=== PATIENT | female | born 1955 | race Caucasian/White ===

== ENCOUNTER 2018-10-11 14:42 | Emergency (ER) | payer MEDICARE ==
--- NOTE | 2018-10-11 16:15 | EDM.PDOC ---
ED HPI GENERAL MEDICAL PROBLEM - General Chief Complaint: Skin Complaint Stated Complaint: SPIDER BITE Time Seen by Provider: 10/11/18 14:55 Source of Information: Reports: Patient History Limitations: Reports: No Limitations - History of Present Illness INITIAL COMMENTS - FREE TEXT/NARRATIVE: HISTORY AND PHYSICAL: History of present illness: Patient is a 63-year-old female here with complaint of spider bite. She states she was cleaning a shelf yesterday when she reached up and felt spider webs then a prick on her arm. Today she noticed a blister with redness around it. She denies fevers, chills, nausea, vomiting, headache, joint pain. Review of systems: As per history of present illness and below otherwise all systems reviewed and negative. Past medical history: As per history of present illness and as reviewed below otherwise noncontributory. Surgical history: As per history of present illness and as reviewed below otherwise noncontributory. Social history: No reported history of drug or alcohol abuse. Family history: As per history of present illness and as reviewed below otherwise noncontributory. Physical exam: General: Patient sitting comfortably in no acute distress and nontoxic appearing HEENT: Atraumatic, normocephalic, pupils reactive, negative for conjunctival pallor or scleral icterus, mucous membranes moist, throat clear, neck supple, nontender, trachea midline. No meningeal signs. Lungs: Clear to auscultation, breath sounds equal bilaterally, chest nontender. Heart: S1S2, regular, negative for clicks, rubs, or overt murmur. Abdomen: Soft, nondistended, nontender. Negative for masses or hepatosplenomegaly. Negative for costovertebral tenderness. No rigidity, rebound , guarding. Pelvis: Stable nontender. Genitourinary: Deferred. Rectal: Deferred. Skin: There is a 1cm purulent blister to the posterior aspect of the arm just inferior to the elbow. There is approximately 3cm of surrounding erythema and warmth. Extremities: Atraumatic, negative for cords or calf pain. Neurovascular unremarkable. Neuro: Awake, alert, oriented. Cranial nerves II through XII unremarkable. Cerebellum unremarkable. Motor and sensory unremarkable throughout. Exam nonfocal. Notes: 18-gauge needle was used to drain a small amount of purulent fluid from blister Diagnostics: CBC, CMP Therapeutics: [] Prescriptions: Bactrim Impression: Cellulitis Plan: 1. take antibiotic as instructed. 2. Follow up with primary care provider 3. Return to ED as needed as discussed Definitive disposition and diagnosis as appropriate pending reevaluation and review of above. 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 ED EXAM, SKIN/RASH Exam: See Below (see dictation) Course - Vital Signs Last Recorded V/S: Last Vital Signs Temp 96.7 F 10/11/18 14:53 Pulse 109 H 10/11/18 14:53 Resp 18 10/11/18 14:53 BP 142/96 H 10/11/18 14:53 Pulse Ox 96 10/11/18 14:53 - Orders/Labs/Meds Labs: Laboratory Tests 10/11/18 10/11/18 Range/Units 15:23 15:23 WBC 11.46 H (4.0-11.0) K/uL RBC 5.47 (4.30-5.90) M/uL Hgb 17.0 H (12.0-16.0) g/dL Hct 51.4 H (36.0-46.0) % MCV 94.0 (80.0-98.0) fL MCH 31.1 (27.0-32.0) pg MCHC 33.1 (31.0-37.0) g/dL RDW Std Deviation 51.6 (28.0-62.0) fl RDW Coeff of Viky 15 (11.0-15.0) % Plt Count 267 (150-400) K/uL MPV 10.00 (7.40-12.00) fL Neut % (Auto) 74.0 (48.0-80.0) % Lymph % (Auto) 16.8 (16.0-40.0) % [place] % (Auto) 5.8 (0.0-15.0) % Eos % (Auto) 3.2 (0.0-7.0) % Baso % (Auto) 0.2 (0.0-1.5) % Neut # (Auto) 8.5 H (1.4-5.7) K/uL Lymph # (Auto) 1.9 (0.6-2.4) K/uL [place] # (Auto) 0.7 (0.0-0.8) K/uL Eos # (Auto) 0.4 (0.0-0.7) K/uL Baso # (Auto) 0.0 (0.0-0.1) K/uL Nucleated RBC % 0.0 /100WBC Nucleated RBCs # 0 K/uL Sodium 141 (136-145) mmol/L Potassium 4.3 (3.5-5.1) mmol/L Chloride 104 (98-107) mmol/L Carbon Dioxide 30.2 (21.0-32.0) mmol/L BUN 22 H (7.0-18.0) mg/dL Creatinine 1.1 H (0.6-1.0) mg/dL Est Cr Clr Drug Dosing 48.33 mL/min Estimated GFR (MDRD) 50.5 ml/min Glucose 123 H (74-106) mg/dL Calcium 9.5 (8.5-10.1) mg/dL Total Bilirubin 0.3 (0.2-1.0) mg/dL AST 14 L (15-37) IU/L ALT 20 (14-63) IU/L Alkaline Phosphatase 102 (46-116) U/L Total Protein 6.6 (6.4-8.2) g/dL Albumin 3.2 L (3.4-5.0) g/dL Globulin 3.4 (2.6-4.0) g/dL Albumin/Globulin Ratio 0.9 (0.9-1.6) Departure - Departure Time of Disposition: 16:15 Disposition: Home, Self-Care 01 Condition: Good Clinical Impression: Cellulitis Qualifiers: Site of cellulitis: extremity Site of cellulitis of extremity: upper extremity Laterality: left Qualified Code(s): L03.114 - Cellulitis of left upper limb - Discharge Information Prescriptions: Sulfamethoxazole/Trimethoprim [Bactrim Ds Tablet] 1 each PO BID #14 tablet Referrals: PCP,None [Primary Care Provider] - Forms: ED Department Discharge Additional Instructions: The following information is given to patients seen in the emergency department who are being discharged to home. This information is to outline your options for follow-up care. We provide all patients seen in our emergency department with a follow-up referral. The need for follow-up, as well as the timing and circumstances, are variable depending upon the specifics of your emergency department visit. If you don't have a primary care physician on staff, we will provide you with a referral. We always advise you to contact your personal physician following an emergency department visit to inform them of the circumstance of the visit and for follow-up with them and/or the need for any referrals to a consulting specialist. The emergency department will also refer you to a specialist when appropriate. This referral assures that you have the opportunity for follow-up care with a specialist. All of these measure are taken in an effort to provide you with optimal care, which includes your follow-up. Under all circumstances we always encourage you to contact your private physician who remains a resource for coordinating your care. When calling for follow-up care, please make the office aware that this follow-up is from your recent emergency room visit. If for any reason you are refused follow-up, please contact the [facility] at and asked to speak to the emergency department charge nurse. [facility] [address] [place] [id number] [id number] 1. take antibiotic as instructed. 2. Follow up with primary care provider 3. Return to ED as needed as discussed
== END 2018-10-11 16:45 | disposition home or self-care (01) ==
LOC: MW.ED 14:42
DX: L03.114 Cellulitis of left upper limb (principal); F17.210 Nicotine dependence, cigarettes, uncomplicated; Z91.040 Latex allergy status
CPT/HCPCS: 36415; 80053; 85025; 99282

== ENCOUNTER 2018-10-17 16:26 | Emergency (ER) | payer MEDICARE ==
--- NOTE | 2018-10-17 17:08 | EDM.PDOC ---
ED HPI GENERAL MEDICAL PROBLEM - General Chief Complaint: Respiratory Problem Stated Complaint: TROUBLE BREATHING Time Seen by Provider: 10/17/18 16:48 Source of Information: Reports: Patient History Limitations: Reports: No Limitations - History of Present Illness INITIAL COMMENTS - FREE TEXT/NARRATIVE: Presents reporting shortness of breath. The patient states that she has COPD and has smoked cigarettes for 40 years. She does occasionally have exacerbations like this. Currently she just arrived from her home in [place] and forgot her nebulizer. Denies chest pain or fever. - Related Data Allergies Allergy/AdvReac Type Severity Reaction Status Date / Time Latex, Natural Rubber Allergy Rash Verified 10/17/18 16:27 Home Meds: Home Meds Sulfamethoxazole/Trimethoprim [Bactrim Ds Tablet] 1 each PO BID #14 tablet 10/11 [Rx] Albuterol/Ipratropium [DuoNeb 3.0-0.5 MG/3 ML] 3 ml .XX BID #10 neb 10/17/18 [Rx ] predniSONE [Prednisone] 2 tab PO DAILY #10 tablet 10/17/18 [Rx] Past Medical History HEENT History: Reports: Impaired Vision Cardiovascular History: Reports: None Respiratory History: Reports: COPD Gastrointestinal History: Reports: None Genitourinary History: Reports: None 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: Musculoskeletal History: Reports: None Neurological History: Reports: None Psychiatric History: Reports: None Endocrine/Metabolic History: Reports: None Hematologic History: Reports: None Immunologic History: Reports: None Oncologic (Cancer) History: Reports: None Dermatologic History: Reports: None - Infectious Disease History Infectious Disease History: Reports: Chicken Pox - Past Surgical History Head Surgeries/Procedures: Reports: None HEENT Surgical History: Reports: None Cardiovascular Surgical History: Reports: None Respiratory Surgical History: Reports: None GI Surgical History: Reports: None Female Surgical History: Reports: None Endocrine Surgical History: Reports: None Neurological Surgical History: Reports: None Musculoskeletal Surgical History: Reports: None Oncologic Surgical History: Reports: None Dermatological Surgical History: Reports: None Social & Family History - Family History Family Medical History: Noncontributory - Tobacco Use Smoking Status *Q: Current Every Day Smoker Years of Tobacco use: 40 Packs/Tins Daily: 0.5 - Caffeine Use Caffeine Use: Reports: Coffee - Recreational Drug Use Recreational Drug Use: No ED ROS GENERAL - Review of Systems Review Of Systems: ROS reveals no pertinent complaints other than HPI. ED EXAM, GENERAL - Physical Exam Exam: See Below Exam Limited By: No Limitations General Appearance: Alert, No Apparent Distress Ears: Normal External Exam, Normal TMs Nose: Normal Inspection Throat/Mouth: Normal Inspection Head: Atraumatic, Normocephalic Neck: Normal Inspection Respiratory/Chest: No Respiratory Distress, Lungs Clear, Normal Breath Sounds GI/Abdominal: Normal Bowel Sounds (Female) Exam: Normal External Exam Back Exam: Normal Inspection Extremities: Normal Inspection Neurological: Alert, Oriented Psychiatric: Normal Affect, Normal Mood Skin Exam: Warm, Dry, Intact, Normal Color, No Rash Lymphatic: No Adenopathy Course - Vital Signs Last Recorded V/S: Last Vital Signs Temp 35.4 C 10/17/18 16:28 Pulse 102 H 10/17/18 16:28 Resp 20 10/17/18 16:28 BP 177/91 H 10/17/18 16:28 Pulse Ox 89 L 10/17/18 16:28 - Orders/Labs/Meds Orders: Active Orders 24 hr Category Date Time Status RT Aerosol Therapy [RC] ASDIRECTED Care 10/17/18 17:33 Active RT Aerosol Therapy [RC] ASDIRECTED Care 10/17/18 17:42 Ordered Labs: Laboratory Tests 10/17/18 10/17/18 Range/Units 17:22 17:22 WBC 11.14 H (4.0-11.0) K/uL RBC 5.41 (4.30-5.90) M/uL Hgb 16.6 H (12.0-16.0) g/dL Hct 51.3 H (36.0-46.0) % MCV 94.8 (80.0-98.0) fL MCH 30.7 (27.0-32.0) pg MCHC 32.4 (31.0-37.0) g/dL RDW Std Deviation 52.8 (28.0-62.0) fl RDW Coeff of Viky 15 (11.0-15.0) % Plt Count 246 (150-400) K/uL MPV 10.00 (7.40-12.00) fL Neut % (Auto) 79.4 (48.0-80.0) % Lymph % (Auto) 11.9 L (16.0-40.0) % [place] % (Auto) 5.6 (0.0-15.0) % Eos % (Auto) 2.7 (0.0-7.0) % Baso % (Auto) 0.4 (0.0-1.5) % Neut # (Auto) 8.9 H (1.4-5.7) K/uL Lymph # (Auto) 1.3 (0.6-2.4) K/uL [place] # (Auto) 0.6 (0.0-0.8) K/uL Eos # (Auto) 0.3 (0.0-0.7) K/uL Baso # (Auto) 0.0 (0.0-0.1) K/uL Nucleated RBC % 0.0 /100WBC Nucleated RBCs # 0 K/uL Sodium 140 (136-145) mmol/L Potassium 4.4 (3.5-5.1) mmol/L Chloride 106 (98-107) mmol/L Carbon Dioxide 24.1 (21.0-32.0) mmol/L BUN 21 H (7.0-18.0) mg/dL Creatinine 0.8 (0.6-1.0) mg/dL Est Cr Clr Drug Dosing 66.45 mL/min Estimated GFR (MDRD) > 60.0 ml/min Glucose 118 H (74-106) mg/dL Calcium 9.3 (8.5-10.1) mg/dL Total Bilirubin 0.2 (0.2-1.0) mg/dL AST 16 (15-37) IU/L ALT 21 (14-63) IU/L Alkaline Phosphatase 108 (46-116) U/L Total Protein 6.8 (6.4-8.2) g/dL Albumin 3.1 L (3.4-5.0) g/dL Globulin 3.7 (2.6-4.0) g/dL Albumin/Globulin Ratio 0.8 L (0.9-1.6) Meds: Medications Discontinued Medications Generic Name Dose Route Start Last Admin Trade Name Freq PRN Reason Stop Dose Admin Albuterol/Ipratropium Confirm 10/17/18 16:30 10/17/18 17:36 Duoneb 3.0-0.5 Mg/3 Ml Administered 10/17/18 16:31 Not Given Dose 3 ml .ROUTE .STK-MED ONE Albuterol/Ipratropium 3 ml 10/17/18 17:33 10/17/18 17:35 Duoneb 3.0-0.5 Mg/3 Ml NEB 10/17/18 17:34 3 ml ONETIME ONE Administration Budesonide 0.5 mg 10/17/18 17:42 Pulmicort NEB 10/17/18 17:43 ONETIME ONE Methylprednisolone Sodium Succinate 125 mg 10/17/18 17:45 Solu-Medrol IM 10/17/18 17:46 ONETIME ONE Departure - Departure Time of Disposition: 18:13 Disposition: Home, Self-Care 01 Condition: Good Clinical Impression: COPD (chronic obstructive pulmonary disease) Qualifiers: COPD type: unspecified COPD Qualified Code(s): J44.9 - Chronic obstructive pulmonary disease, unspecified - Discharge Information Referrals: PCP,None [Primary Care Provider] - [facility] [Outside] [facility] [Outside] Forms: ED Department Discharge Additional Instructions: 1. DuoNeb treatment twice daily. You have been given a prescription for a nebulizer which he may purchase at any pharmacy if you're daughter does not arrive with yours in the next 24 hours. 2. Prednisone 2 tabs once daily for the next 5 days 3. Establish with a primary care provider here in [place] while you are living here. - My Orders Last 24 Hours: My Active Orders 10/17/18 17:33 RT Aerosol Therapy [RC] ASDIRECTED 10/17/18 17:42 RT Aerosol Therapy [RC] ASDIRECTED - Assessment/Plan Last 24 Hours: My Active Orders 10/17/18 17:33 RT Aerosol Therapy [RC] ASDIRECTED 10/17/18 17:42 RT Aerosol Therapy [RC] ASDIRECTED
--- NOTE | 2018-10-17 17:31 | CR ---
INDICATION: SOB TECHNIQUE: Chest 2 views. COMPARISON: None. FINDINGS: Cardiovascular and mediastinum: Heart size and vasculature are normal in caliber and appearance. Mediastinum is within normal limits. Lungs and pleural spaces: Lungs are clear. No sign of infiltrate or mass. No sign of pleural effusion. No pneumothorax. Bones and soft tissues: No significant findings. IMPRESSION: Unremarkable chest. Dictated by: Duc Mitchell MD @ 10/17/2018 17:30:34 (Electronically Signed)
[2018-10-17] MEDS ORDERED: Albuterol/Ipratropium 3.0-0.5 MG/3 ML Neb Soln NEB ONE (17:33)
[2018-10-17] MEDS: Albuterol/Ipratropium 3.0-0.5 MG/3 ML Neb Soln ONE ×2 (17:35→17:36)
[2018-10-17] MEDS ORDERED: Budesonide 0.5 MG/2 ML Neb Susp NEB ONE (17:42)
[2018-10-17] MEDS ORDERED: methylPREDNISolone Sodium Succinate 125 MG/2 ML SDV IVPUSH ONE (17:42)
[2018-10-17] MEDS ORDERED: methylPREDNISolone Sodium Succinate 125 MG/2 ML SDV IM ONE (17:45)
[2018-10-17 17:56] LABS: CHLORIDE,CL 106 mmol/L (98-107); SODIUM,NA 140 mmol/L (136-145)
== END 2018-10-17 18:52 | disposition home or self-care (01) ==
LOC: MW.ED 16:26
DX: J44.9 Chronic obstructive pulmonary disease, unspecified (principal); F17.210 Nicotine dependence, cigarettes, uncomplicated; Z91.040 Latex allergy status; Z79.899 Other long term (current) drug therapy
CPT/HCPCS: 36415; 71046; 80053; 85025; 96372; 99285; J2930; J7620-GY

== ENCOUNTER 2019-02-24 11:41 | Observation (INO) | payer MEDICARE ==
--- NOTE | 2019-02-24 11:48 | EDM.PDOC ---
ED HPI GENERAL MEDICAL PROBLEM - General Chief Complaint: Respiratory Problem Stated Complaint: COUGH, TROUBLE BREATHING Time Seen by Provider: 02/24/19 11:48 Source of Information: Reports: Patient History Limitations: Reports: No Limitations - History of Present Illness INITIAL COMMENTS - FREE TEXT/NARRATIVE: HISTORY AND PHYSICAL: History of present illness: Patient is a 64-year-old female presents to the ED with complaint of difficulty breathing. Patient has history of COPD. She states that she has been having cough and shortness of breath x 3 days. She has been using her DuoNeb at home without relief of symptoms. She reports subjective fevers. He denies chest pain , abdominal pain, nausea, vomiting or any other complaints at this time. Review of systems: As per history of present illness and below otherwise all systems reviewed and negative. Past medical history: As per history of present illness and as reviewed below otherwise noncontributory. Surgical history: As per history of present illness and as reviewed below otherwise noncontributory. Social history: No reported history of drug or alcohol abuse. Family history: As per history of present illness and as reviewed below otherwise noncontributory. Physical exam: General: Patient sitting comfortably in no acute distress and nontoxic appearing HEENT: Atraumatic, normocephalic, pupils reactive, negative for conjunctival pallor or scleral icterus, mucous membranes moist, throat clear, neck supple, nontender, trachea midline. No meningeal signs. Lungs: Rhonchi throughout with diminished breath sounds, chest nontender. Heart: S1S2, regular, negative for clicks, rubs, or overt murmur. Abdomen: Soft, nondistended, nontender. Negative for masses or hepatosplenomegaly. Negative for costovertebral tenderness. No rigidity, rebound , guarding. Pelvis: Stable nontender. Genitourinary: Deferred. Rectal: Deferred. Extremities: 1+ pitting edema bilaterally. Atraumatic, negative for cords or calf pain. Neurovascular unremarkable. Neuro: Awake, alert, oriented. Cranial nerves II through XII unremarkable. Cerebellum unremarkable. Motor and sensory unremarkable throughout. Exam nonfocal. Notes: BNP machine down and unable to order this lab. Diagnostics: CBC, CMP, chest x-ray Therapeutics: DuoNeb Solu-Medrol 125 mg IV Laxix 20mg IV Prescriptions: Impression: COPD exacerbation, mild CHF Plan: Discussed with Dr. Devi, patient will be admitted to observation Definitive disposition and diagnosis as appropriate pending reevaluation and review of above. - Related Data Allergies Allergy/AdvReac Type Severity Reaction Status Date / Time Latex, Natural Rubber Allergy Rash Verified 02/24/19 11:45 Home Meds: Home Meds Sulfamethoxazole/Trimethoprim [Bactrim Ds Tablet] 1 each PO BID #14 tablet 10/11 [Rx] Albuterol/Ipratropium [DuoNeb 3.0-0.5 MG/3 ML] 3 ml .XX BID #10 neb 10/17/18 [Rx ] predniSONE [Prednisone] 2 tab PO DAILY #10 tablet 10/17/18 [Rx] Past Medical History HEENT History: Reports: Impaired Vision Cardiovascular History: Reports: None Respiratory History: Reports: COPD Gastrointestinal History: Reports: None Genitourinary History: Reports: None 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 History: Reports: None Neurological History: Reports: None Psychiatric History: Reports: None Endocrine/Metabolic History: Reports: None Hematologic History: Reports: None Immunologic History: Reports: None Oncologic (Cancer) History: Reports: None Dermatologic History: Reports: None - Infectious Disease History Infectious Disease History: Reports: Chicken Pox - Past Surgical History Head Surgeries/Procedures: Reports: None HEENT Surgical History: Reports: None Cardiovascular Surgical History: Reports: None Respiratory Surgical History: Reports: None GI Surgical History: Reports: None Female Surgical History: Reports: None Endocrine Surgical History: Reports: None Neurological Surgical History: Reports: None Musculoskeletal Surgical History: Reports: None Oncologic Surgical History: Reports: None Dermatological Surgical History: Reports: None Social & Family History - Family History Family Medical History: Noncontributory - Caffeine Use Caffeine Use: Reports: Coffee ED ROS GENERAL - Review of Systems Review Of Systems: ROS reveals no pertinent complaints other than HPI. ED EXAM, GENERAL - Physical Exam Exam: See Below (see dictation) Course - Vital Signs Last Recorded V/S: Last Vital Signs Temp 97.5 F 02/24/19 11:46 Pulse 75 02/24/19 13:15 Resp 20 02/24/19 13:15 BP 134/73 02/24/19 13:15 Pulse Ox 92 L 02/24/19 13:15 - Orders/Labs/Meds Orders: Active Orders 24 hr Category Date Time Status Oxygen Therapy, ED [RC] ASDIRECTED Care 02/24/19 11:48 Active Pulse Oximetry [RC] ASDIRECTED Care 02/24/19 11:49 Active RT Aerosol Therapy [RC] ASDIRECTED Care 02/24/19 11:49 Active RT Aerosol Therapy [RC] ASDIRECTED Care 02/24/19 12:17 Active Sodium Chloride 0.9% [Saline Flush] Med 02/24/19 11:49 Active 10 ml FLUSH ASDIRECTED PRN Sodium Chloride 0.9% [Saline Flush] Med 02/24/19 11:49 Active 2.5 ml FLUSH ASDIRECTED PRN Saline Lock Insert [OM.PC] Stat Oth 02/24/19 11:48 Ordered Medication Orders Sodium Chloride (Saline Flush) 10 ml FLUSH ASDIRECTED PRN PRN Reason: Keep Vein Open Sodium Chloride (Saline Flush) 2.5 ml FLUSH ASDIRECTED PRN PRN Reason: Keep Vein Open Labs: Laboratory Tests 02/24/19 02/24/19 Range/Units 12:05 12:05 WBC 6.06 (4.0-11.0) K/uL RBC 5.20 (4.30-5.90) M/uL Hgb 16.2 H (12.0-16.0) g/dL Hct 49.0 H (36.0-46.0) % MCV 94.2 (80.0-98.0) fL MCH 31.2 (27.0-32.0) pg MCHC 33.1 (31.0-37.0) g/dL RDW Std Deviation 55.8 (28.0-62.0) fl RDW Coeff of Viky 16 H (11.0-15.0) % Plt Count 208 (150-400) K/uL MPV 9.80 (7.40-12.00) fL Neut % (Auto) 77.0 (48.0-80.0) % Lymph % (Auto) 12.2 L (16.0-40.0) % [place] % (Auto) 6.9 (0.0-15.0) % Eos % (Auto) 3.6 (0.0-7.0) % Baso % (Auto) 0.3 (0.0-1.5) % Neut # (Auto) 4.7 (1.4-5.7) K/uL Lymph # (Auto) 0.7 (0.6-2.4) K/uL [place] # (Auto) 0.4 (0.0-0.8) K/uL Eos # (Auto) 0.2 (0.0-0.7) K/uL Baso # (Auto) 0.0 (0.0-0.1) K/uL Nucleated RBC % 0.0 /100WBC Nucleated RBCs # 0 K/uL Sodium 145 (136-145) mmol/L Potassium 4.8 (3.5-5.1) mmol/L Chloride 107 (98-107) mmol/L Carbon Dioxide 26.6 (21.0-32.0) mmol/L BUN 24 H (7.0-18.0) mg/dL Creatinine 0.9 (0.6-1.0) mg/dL Est Cr Clr Drug Dosing 58.32 mL/min Estimated GFR (MDRD) > 60.0 ml/min Glucose 108 H (74-106) mg/dL Calcium 8.9 (8.5-10.1) mg/dL Total Bilirubin 0.3 (0.2-1.0) mg/dL AST 18 (15-37) IU/L ALT 22 (14-63) IU/L Alkaline Phosphatase 107 (46-116) U/L Total Protein 6.9 (6.4-8.2) g/dL Albumin 3.3 L (3.4-5.0) g/dL Globulin 3.6 (2.6-4.0) g/dL Albumin/Globulin Ratio 0.9 (0.9-1.6) Meds: Medications Generic Name Dose Route Start Last Admin Trade Name Freq PRN Reason Stop Dose Admin Sodium Chloride 10 ml 02/24/19 11:49 Saline Flush FLUSH ASDIRECTED PRN Keep Vein Open Sodium Chloride 2.5 ml 02/24/19 11:49 Saline Flush FLUSH ASDIRECTED PRN Keep Vein Open Discontinued Medications Generic Name Dose Route Start Last Admin Trade Name Freq PRN Reason Stop Dose Admin Albuterol/Ipratropium 3 ml 02/24/19 11:49 02/24/19 11:52 Duoneb 3.0-0.5 Mg/3 Ml NEB 02/24/19 11:50 3 ml ONETIME ONE Administration Albuterol/Ipratropium Confirm 02/24/19 11:50 02/24/19 11:57 Duoneb 3.0-0.5 Mg/3 Ml Administered 02/24/19 11:51 Not Given Dose 3 ml .ROUTE .STK-MED ONE Albuterol/Ipratropium 3 ml 02/24/19 12:17 02/24/19 12:20 Duoneb 3.0-0.5 Mg/3 Ml NEB 02/24/19 12:18 3 ml ONETIME ONE Administration Furosemide 20 mg 02/24/19 12:59 02/24/19 13:06 Lasix IVPUSH 02/24/19 13:00 20 mg NOW ONE Administration Methylprednisolone Sodium Succinate 125 mg 02/24/19 11:49 02/24/19 12:11 Solu-Medrol IVPUSH 02/24/19 11:50 125 mg ONETIME ONE Administration Departure - Departure Time of Disposition: 13:39 Disposition: Refer to Observation Condition: Good Clinical Impression: COPD exacerbation, Mild congestive heart failure - Discharge Information Referrals: PCP,Unknown [Primary Care Provider] - Forms: ED Department Discharge - My Orders Last 24 Hours: My Active Orders 02/24/19 11:48 Oxygen Therapy, ED [RC] ASDIRECTED Saline Lock Insert [OM.PC] Stat 02/24/19 11:49 Pulse Oximetry [RC] ASDIRECTED RT Aerosol Therapy [RC] ASDIRECTED Sodium Chloride 0.9% [Saline Flush] 10 ml FLUSH ASDIRECTED PRN Sodium Chloride 0.9% [Saline Flush] 2.5 ml FLUSH ASDIRECTED PRN 02/24/19 12:17 RT Aerosol Therapy [RC] ASDIRECTED - Assessment/Plan Last 24 Hours: My Active Orders 02/24/19 11:48 Oxygen Therapy, ED [RC] ASDIRECTED Saline Lock Insert [OM.PC] Stat 02/24/19 11:49 Pulse Oximetry [RC] ASDIRECTED RT Aerosol Therapy [RC] ASDIRECTED Sodium Chloride 0.9% [Saline Flush] 10 ml FLUSH ASDIRECTED PRN Sodium Chloride 0.9% [Saline Flush] 2.5 ml FLUSH ASDIRECTED PRN 02/24/19 12:17 RT Aerosol Therapy [RC] ASDIRECTED
[2019-02-24] MEDS ORDERED: methylPREDNISolone Sodium Succinate 125 MG/2 ML SDV IVPUSH ONE (11:49)
[2019-02-24] MEDS ORDERED: Albuterol/Ipratropium 3.0-0.5 MG/3 ML Neb Soln NEB ONE ×2 (11:49→12:17)
[2019-02-24] MEDS ORDERED: Sodium Chloride 0.9% 2.5 ML Syringe FLUSH PRN (11:49)
[2019-02-24] MEDS ORDERED: Sodium Chloride 0.9% 10 ML Syringe FLUSH PRN (11:49)
[2019-02-24] MEDS ORDERED: Albuterol/Ipratropium 3.0-0.5 MG/3 ML Neb Soln ONE (11:50)
[2019-02-24 12:37] LABS: BLOOD UREA NITROGEN,BUN 24 mg/dL (7.0-18.0); CARBON DIOXIDE,CO2 26.6 mmol/L (21.0-32.0); CHLORIDE,CL 107 mmol/L (98-107); GLUCOSE RANDOM 108 mg/dL (74-106); POTASSIUM,K 4.8 mmol/L (3.5-5.1); SODIUM,NA 145 mmol/L (136-145)
--- NOTE | 2019-02-24 12:42 | CR ---
HISTORY: Chest pain and dyspnea. COMPARISON: Two-view examination from 10/17/2018 FINDINGS: A portable erect AP view of the chest was obtained at 1154 hours. There is new mild interstitial pulmonary edema with new mild vascular engorgement, findings of mild congestive failure. No focal infiltrates or pleural effusions are evident. The heart remains normal in size. The mediastinum is normal in appearance. The osseous structures are normal in appearance for the patient`s age. IMPRESSION: New mild congestive failure. Dictated by Aydin Styles MD @ Feb 24 2019 12:39PM Signed by Dr. Aydin Styles @ Feb 24 2019 12:40PM
[2019-02-24] MEDS ORDERED: Furosemide 40 MG/4 ML VIAL IVPUSH ONE (12:59)
[2019-02-24] MEDS ORDERED: Albuterol/Ipratropium 3.0-0.5 MG/3 ML Neb Soln NEB PRN (14:51)
[2019-02-24] MEDS: Nystatin Topical Powder 15 GM Bottle TOP SCH ×2 (18:09→21:33)
--- NOTE | 2019-02-24 20:27 | PCM.HP.2 ---
H&P History of Present Illness - General Date of Service: 02/24/19 Admit Problem/Dx: Admission Diagnosis/Problem Admission Diagnosis/Problem COPD, Moderate chronic obstructive pulmonary disease - History of Present Illness Initial Comments - Free Text/Narative: 64 yo female with pmh of COPD, oxygen dependent who presents with shortness of breath and wheezing. She denies any fevers, or productive cough. She reports orthopnea and 20 lb weight gain in past three months. She denies and pedal edema. She only takes duonebs at home. CXR reported vascular congestion. She received Solumedrol, duonebs and lasix in the ED. She is feeling a little bit better. - Related Data Allergies/Adverse Reactions: Allergies Allergy/AdvReac Type Severity Reaction Status Date / Time Latex, Natural Rubber Allergy Rash Verified 02/24/19 14:22 Home Medications: Home Meds Sulfamethoxazole/Trimethoprim [Bactrim Ds Tablet] 1 each PO BID #14 tablet 10/11 [Rx] Albuterol/Ipratropium [DuoNeb 3.0-0.5 MG/3 ML] 3 ml .XX BID #10 neb 10/17/18 [Rx ] predniSONE [Prednisone] 2 tab PO DAILY #10 tablet 10/17/18 [Rx] Past Medical History HEENT History: Reports: Impaired Vision Cardiovascular History: Reports: None Respiratory History: Reports: COPD Gastrointestinal History: Reports: None Genitourinary History: Reports: None [employer] History: Reports: Musculoskeletal History: Reports: Other (See Below) Other Musculoskeletal History: Knee replacement Neurological History: Reports: None Psychiatric History: Reports: Anxiety Endocrine/Metabolic History: Reports: None Hematologic History: Reports: None Immunologic History: Reports: None Oncologic (Cancer) History: Reports: None Dermatologic History: Reports: None - Infectious Disease History Infectious Disease History: Reports: Chicken Pox, Measles - Past Surgical History Head Surgeries/Procedures: Reports: None HEENT Surgical History: Reports: None Cardiovascular Surgical History: Reports: None Respiratory Surgical History: Reports: None GI Surgical History: Reports: None Female Surgical History: Reports: None Endocrine Surgical History: Reports: None Neurological Surgical History: Reports: None Musculoskeletal Surgical History: Reports: None Oncologic Surgical History: Reports: None Dermatological Surgical History: Reports: None Social & Family History - Family History Family Medical History: Noncontributory Oncologic: Reports: Breast Other Oncologic Family History: mother - Tobacco Use Smoking Status *Q: Current Every Day Smoker Years of Tobacco use: 38 Packs/Tins Daily: 0.5 - Caffeine Use Caffeine Use: Reports: Coffee - Recreational Drug Use Recreational Drug Use: No H&P Review of Systems - Review of Systems: Review Of Systems: ROS reveals no pertinent complaints other than HPI. Exam - Exam Exam: See Below - Vital Signs Vital Signs: Last Vital Signs Temp 36.1 C 02/24/19 20:17 Pulse 97 02/24/19 20:17 Resp 18 02/24/19 20:17 BP 138/72 02/24/19 20:17 Pulse Ox 92 L 02/24/19 20:17 Weight: 104.4 kg - Exam General: Alert, Oriented HEENT: Conjunctiva Clear, Mucosa Moist & [place] Neck: Supple Lungs: Normal Respiratory Effort, Wheezing Cardiovascular: Regular Rate, Regular Rhythm GI/Abdominal Exam: Normal Bowel Sounds, Soft Extremities: Non-Tender, No Pedal Edema Skin: Warm, Dry, Intact - Patient Data Lab Results Last 24 hrs: Laboratory Results - last 24 hr 02/24/19 02/24/19 Range/Units 12:05 12:05 WBC 6.06 (4.0-11.0) K/uL RBC 5.20 (4.30-5.90) M/uL Hgb 16.2 H (12.0-16.0) g/dL Hct 49.0 H (36.0-46.0) % MCV 94.2 (80.0-98.0) fL MCH 31.2 (27.0-32.0) pg MCHC 33.1 (31.0-37.0) g/dL RDW Std Deviation 55.8 (28.0-62.0) fl RDW Coeff of Viky 16 H (11.0-15.0) % Plt Count 208 (150-400) K/uL MPV 9.80 (7.40-12.00) fL Neut % (Auto) 77.0 (48.0-80.0) % Lymph % (Auto) 12.2 L (16.0-40.0) % [place] % (Auto) 6.9 (0.0-15.0) % Eos % (Auto) 3.6 (0.0-7.0) % Baso % (Auto) 0.3 (0.0-1.5) % Neut # (Auto) 4.7 (1.4-5.7) K/uL Lymph # (Auto) 0.7 (0.6-2.4) K/uL [place] # (Auto) 0.4 (0.0-0.8) K/uL Eos # (Auto) 0.2 (0.0-0.7) K/uL Baso # (Auto) 0.0 (0.0-0.1) K/uL Nucleated RBC % 0.0 /100WBC Nucleated RBCs # 0 K/uL Sodium 145 (136-145) mmol/L Potassium 4.8 (3.5-5.1) mmol/L Chloride 107 (98-107) mmol/L Carbon Dioxide 26.6 (21.0-32.0) mmol/L BUN 24 H (7.0-18.0) mg/dL Creatinine 0.9 (0.6-1.0) mg/dL Est Cr Clr Drug Dosing 58.32 mL/min Estimated GFR (MDRD) > 60.0 ml/min Glucose 108 H (74-106) mg/dL Calcium 8.9 (8.5-10.1) mg/dL Total Bilirubin 0.3 (0.2-1.0) mg/dL AST 18 (15-37) IU/L ALT 22 (14-63) IU/L Alkaline Phosphatase 107 (46-116) U/L Total Protein 6.9 (6.4-8.2) g/dL Albumin 3.3 L (3.4-5.0) g/dL Globulin 3.6 (2.6-4.0) g/dL Albumin/Globulin Ratio 0.9 (0.9-1.6) Result Diagrams: 02/24/19 12:05 02/24/19 12:05 Problem List Initiated/Reviewed/Updated: Yes Orders Last 24hrs: Active Orders 24 hr Category Date Time Status Admission Status [Patient Status] [ADT] Stat ADT 02/24/19 13:40 Active Antiembolic Devices [RC] PER UNIT ROUTINE Care 02/24/19 20:21 Ordered Oxygen Therapy [RC] PRN Care 02/24/19 20:21 Ordered Oxygen Therapy, ED [RC] ASDIRECTED Care 02/24/19 11:48 Active Pulse Oximetry [RC] ASDIRECTED Care 02/24/19 11:49 Active RT Aerosol Therapy [RC] ASDIRECTED Care 02/24/19 11:49 Active RT Aerosol Therapy [RC] ASDIRECTED Care 02/24/19 12:17 Active RT Aerosol Therapy [RC] ASDIRECTED Care 02/24/19 14:51 Active Up ad Cherelle [RC] ASDIRECTED Care 02/24/19 20:21 Ordered VTE/DVT Education [RC] PER UNIT ROUTINE Care 02/24/19 20:21 Ordered Vital Signs [RC] Q4H Care 02/24/19 20:21 Ordered Regular Diet [DIET] Diet 02/24/19 Lunch Active Echo Comp wo Cont [US] Routine Exams 02/24/19 20:20 Ordered B-TYPE NATRIURETIC PEPTIDE,BNP [CHEM] AM Lab 02/25/19 05:11 Ordered BASIC METABOLIC PANEL,BMP [CHEM] AM Lab 02/25/19 05:11 Ordered CBC WITH AUTO DIFF [HEME] AM Lab 02/25/19 05:11 Ordered Albuterol/Ipratropium [DuoNeb 3.0-0.5 MG/3 ML] Med 02/24/19 14:51 Active 3 ml NEB Q6HRRT PRN Heparin Sodium Med 02/24/19 20:30 Ordered 5,000 units SUBCUT Q8H Nystatin [Nystop] Med 02/24/19 16:00 Active 1 gm TOP BID Sodium Chloride 0.9% [Saline Flush] Med 02/24/19 11:49 Active 10 ml FLUSH ASDIRECTED PRN Sodium Chloride 0.9% [Saline Flush] Med 02/24/19 11:49 Active 2.5 ml FLUSH ASDIRECTED PRN levoFLOXacin [Levaquin] Med 02/24/19 20:30 Ordered 500 mg PO Q24H methylPREDNISolone Sod Succ [Solu-MEDROL] Med 02/24/19 20:30 Ordered 125 mg IVPUSH Q12H Saline Lock Insert [OM.PC] Stat Oth 02/24/19 11:48 Ordered Sequential Compression Device [OM.PC] Per Unit Routine Oth 02/24/19 20:21 Ordered Resuscitation Status Routine Resus Stat 02/24/19 20:21 Ordered Medication Orders Albuterol/Ipratropium (Duoneb 3.0-0.5 Mg/3 Ml) 3 ml NEB Q6HRRT PRN PRN Reason: Shortness of Breath Last Admin: 02/24/19 15:33 Dose: 3 ml Heparin Sodium (Porcine) (Heparin Sodium) 5,000 units SUBCUT Q8H [facility] Methylprednisolone Sodium Succinate (Solu-Medrol) 125 mg IVPUSH Q12H [facility] Nystatin (Nystop) 1 gm TOP BID [facility] Last Admin: 02/24/19 18:09 Dose: 1 applic Sodium Chloride (Saline Flush) 10 ml FLUSH ASDIRECTED PRN PRN Reason: Keep Vein Open Sodium Chloride (Saline Flush) 2.5 ml FLUSH ASDIRECTED PRN PRN Reason: Keep Vein Open Assessment/Plan Comment:: 64 yo female who presents with shortness of breath from COPD exacerbation COPD exacerbation: continue supplemental O2, solumedrol, duonebs and levaquin suspect CHF: will get BNP and echocardiogram. Patient received lasix in ED. Will place on fluid restriction.
[2019-02-24] MEDS ORDERED: Nystatin Topical Powder 15 GM Bottle TOP SCH (21:00)
[2019-02-24] MEDS: Heparin Sodium 5,000 Units/ML Vial SUBCUT SCH (21:31)
[2019-02-24] MEDS: Levofloxacin 500 MG Tab PO SCH (21:31)
[2019-02-24] MEDS: methylPREDNISolone Sodium Succinate 125 MG/2 ML SDV IVPUSH SCH (21:32)
[2019-02-25] MEDS: Heparin Sodium 5,000 Units/ML Vial SUBCUT SCH ×3 (05:06→20:14)
[2019-02-25] MEDS: Nystatin Topical Powder 15 GM Bottle TOP SCH ×2 (09:06→20:38)
[2019-02-25] MEDS: methylPREDNISolone Sodium Succinate 125 MG/2 ML SDV IVPUSH SCH ×2 (09:06→20:14)
--- NOTE | 2019-02-25 09:14 | PCM.PN ---
- General Info Date of Service: 02/25/19 - Review of Systems Systems Review Comment:: shortness of breath has improved - Patient Data Vitals - Most Recent: Last Vital Signs Temp 35.7 C 02/25/19 03:52 Pulse 97 02/24/19 21:55 Resp 24 H 02/25/19 03:52 BP 143/79 H 02/25/19 03:52 Pulse Ox 91 L 02/25/19 04:00 Weight - Most Recent: 104.4 kg I&O - Last 24 Hours: Intake & Output 02/24/19 02/25/19 02/25/19 22:59 06:59 14:59 Intake Total 0 800 Output Total 300 400 Balance -300 400 Lab Results Last 24 Hours: Laboratory Results - last 24 hr 02/24/19 02/24/19 02/25/19 Range/Units 12:05 12:05 05:40 WBC 6.06 5.85 (4.0-11.0) K/uL RBC 5.20 5.33 (4.30-5.90) M/uL Hgb 16.2 H 16.1 H (12.0-16.0) g/dL Hct 49.0 H 50.8 H (36.0-46.0) % MCV 94.2 95.3 (80.0-98.0) fL MCH 31.2 30.2 (27.0-32.0) pg MCHC 33.1 31.7 (31.0-37.0) g/dL RDW Std Deviation 55.8 56.8 (28.0-62.0) fl RDW Coeff of Viky 16 H 16 H (11.0-15.0) % Plt Count 208 235 (150-400) K/uL MPV 9.80 10.40 (7.40-12.00) fL Neut % (Auto) 77.0 91.1 H (48.0-80.0) % Lymph % (Auto) 12.2 L 8.0 L (16.0-40.0) % [place] % (Auto) 6.9 0.7 (0.0-15.0) % Eos % (Auto) 3.6 0.0 (0.0-7.0) % Baso % (Auto) 0.3 0.2 (0.0-1.5) % Neut # (Auto) 4.7 5.3 (1.4-5.7) K/uL Lymph # (Auto) 0.7 0.5 L (0.6-2.4) K/uL [place] # (Auto) 0.4 0.0 (0.0-0.8) K/uL Eos # (Auto) 0.2 0.0 (0.0-0.7) K/uL Baso # (Auto) 0.0 0.0 (0.0-0.1) K/uL Nucleated RBC % 0.0 0.0 /100WBC Nucleated RBCs # 0 0 K/uL Sodium 145 (136-145) mmol/L Potassium 4.8 (3.5-5.1) mmol/L Chloride 107 (98-107) mmol/L Carbon Dioxide 26.6 (21.0-32.0) mmol/L BUN 24 H (7.0-18.0) mg/dL Creatinine 0.9 (0.6-1.0) mg/dL Est Cr Clr Drug Dosing 58.32 mL/min Estimated GFR (MDRD) > 60.0 ml/min Glucose 108 H (74-106) mg/dL Calcium 8.9 (8.5-10.1) mg/dL Total Bilirubin 0.3 (0.2-1.0) mg/dL AST 18 (15-37) IU/L ALT 22 (14-63) IU/L Alkaline Phosphatase 107 (46-116) U/L Total Protein 6.9 (6.4-8.2) g/dL Albumin 3.3 L (3.4-5.0) g/dL Globulin 3.6 (2.6-4.0) g/dL Albumin/Globulin Ratio 0.9 (0.9-1.6) 02/25/19 Range/Units 05:40 WBC (4.0-11.0) K/uL RBC (4.30-5.90) M/uL Hgb (12.0-16.0) g/dL Hct (36.0-46.0) % MCV (80.0-98.0) fL MCH (27.0-32.0) pg MCHC (31.0-37.0) g/dL RDW Std Deviation (28.0-62.0) fl RDW Coeff of Viky (11.0-15.0) % Plt Count (150-400) K/uL MPV (7.40-12.00) fL Neut % (Auto) (48.0-80.0) % Lymph % (Auto) (16.0-40.0) % [place] % (Auto) (0.0-15.0) % Eos % (Auto) (0.0-7.0) % Baso % (Auto) (0.0-1.5) % Neut # (Auto) (1.4-5.7) K/uL Lymph # (Auto) (0.6-2.4) K/uL [place] # (Auto) (0.0-0.8) K/uL Eos # (Auto) (0.0-0.7) K/uL Baso # (Auto) (0.0-0.1) K/uL Nucleated RBC % /100WBC Nucleated RBCs # K/uL Sodium 145 (136-145) mmol/L Potassium 5.0 (3.5-5.1) mmol/L Chloride 107 (98-107) mmol/L Carbon Dioxide 30.0 (21.0-32.0) mmol/L BUN 31 H (7.0-18.0) mg/dL Creatinine 1.0 (0.6-1.0) mg/dL Est Cr Clr Drug Dosing 52.49 mL/min Estimated GFR (MDRD) 56.2 ml/min Glucose 170 H (74-106) mg/dL Calcium 9.0 (8.5-10.1) mg/dL Total Bilirubin (0.2-1.0) mg/dL AST (15-37) IU/L ALT (14-63) IU/L Alkaline Phosphatase (46-116) U/L Total Protein (6.4-8.2) g/dL Albumin (3.4-5.0) g/dL Globulin (2.6-4.0) g/dL Albumin/Globulin Ratio (0.9-1.6) Med Orders - Current: Current Medications Albuterol/Ipratropium (Duoneb 3.0-0.5 Mg/3 Ml) 3 ml NEB Q6HRRT [facility] Heparin Sodium (Porcine) (Heparin Sodium) 5,000 units SUBCUT Q8H [facility] Last Admin: 02/25/19 05:06 Dose: 5,000 units Levofloxacin (Levaquin) 500 mg PO Q24H [facility] Last Admin: 02/24/19 21:31 Dose: 500 mg Methylprednisolone Sodium Succinate (Solu-Medrol) 125 mg IVPUSH Q12H [facility] Last Admin: 02/25/19 09:06 Dose: 125 mg Nystatin (Nystop) 1 gm TOP BID [facility] Last Admin: 02/25/19 09:06 Dose: 1 applic Sodium Chloride (Saline Flush) 10 ml FLUSH ASDIRECTED PRN PRN Reason: Keep Vein Open Sodium Chloride (Saline Flush) 2.5 ml FLUSH ASDIRECTED PRN PRN Reason: Keep Vein Open Discontinued Medications Albuterol/Ipratropium (Duoneb 3.0-0.5 Mg/3 Ml) 3 ml NEB ONETIME ONE Stop: 02/24/19 11:50 Last Admin: 02/24/19 11:52 Dose: 3 ml Albuterol/Ipratropium (Duoneb 3.0-0.5 Mg/3 Ml) Confirm Administered Dose 3 ml .ROUTE .STK-MED ONE Stop: 02/24/19 11:51 Last Admin: 02/24/19 11:57 Dose: Not Given Albuterol/Ipratropium (Duoneb 3.0-0.5 Mg/3 Ml) 3 ml NEB ONETIME ONE Stop: 02/24/19 12:18 Last Admin: 02/24/19 12:20 Dose: 3 ml Albuterol/Ipratropium (Duoneb 3.0-0.5 Mg/3 Ml) 3 ml NEB Q6HRRT PRN PRN Reason: Shortness of Breath Last Admin: 02/24/19 15:33 Dose: 3 ml Furosemide (Lasix) 20 mg IVPUSH NOW ONE Stop: 02/24/19 13:00 Last Admin: 02/24/19 13:06 Dose: 20 mg Methylprednisolone Sodium Succinate (Solu-Medrol) 125 mg IVPUSH ONETIME ONE Stop: 02/24/19 11:50 Last Admin: 02/24/19 12:11 Dose: 125 mg Nystatin (Nystop) 1 gm TOP BID CARLOS - Exam General: Alert, Oriented Lungs: Wheezing Cardiovascular: Regular Rate, Regular Rhythm GI/Abdominal Exam: Soft, Non-Tender, No Distention Extremities: Non-Tender, No Pedal Edema Skin: Warm, Dry, Intact Neurological: No New Focal Deficit - Problem List Review Problem List Initiated/Reviewed/Updated: Yes - My Orders Last 24 Hours: My Active Orders 02/24/19 14:51 RT Aerosol Therapy [RC] ASDIRECTED 02/24/19 16:00 Nystatin [Nystop] 1 gm TOP BID 02/24/19 20:00 levoFLOXacin [Levaquin] 500 mg PO Q24H 02/24/19 20:20 Echo Comp wo Cont [US] Routine 02/24/19 20:21 Antiembolic Devices [RC] PER UNIT ROUTINE Oxygen Therapy [RC] PRN Up ad Cherelle [RC] ASDIRECTED VTE/DVT Education [RC] PER UNIT ROUTINE Vital Signs [RC] Q4H Sequential Compression Device [OM.PC] Per Unit Routine Resuscitation Status Routine 02/24/19 20:30 Heparin Sodium 5,000 units SUBCUT Q8H 02/24/19 21:00 methylPREDNISolone Sod Succ [Solu-MEDROL] 125 mg IVPUSH Q12H 02/24/19 Lunch Regular Diet [DIET] 02/25/19 05:40 B-TYPE NATRIURETIC PEPTIDE,BNP [CHEM] AM 02/25/19 Breakfast Fluid Restriction [DIET] 02/26/19 05:11 BASIC METABOLIC PANEL,BMP [CHEM] AM CBC WITH AUTO DIFF [HEME] AM 02/27/19 05:11 BASIC METABOLIC PANEL,BMP [CHEM] AM CBC WITH AUTO DIFF [HEME] AM - Plan Plan:: 64 yo female who presents with shortness of breath from COPD exacerbation COPD exacerbation: continue supplemental O2, solumedrol, duonebs and levaquin possible CHF: echocardiogram ordered. Patient received Lasix in ED. BUN has increased.
[2019-02-25] MEDS ORDERED: Albuterol/Ipratropium 3.0-0.5 MG/3 ML Neb Soln ONE (09:26)
[2019-02-25] MEDS: Albuterol/Ipratropium 3.0-0.5 MG/3 ML Neb Soln NEB SCH ×4 (09:30→23:49)
[2019-02-25] MEDS ORDERED: Albuterol/Ipratropium 3.0-0.5 MG/3 ML Neb Soln NEB SCH (15:30)
[2019-02-25] MEDS: Levofloxacin 500 MG Tab PO SCH (20:14)
[2019-02-26] MEDS: Heparin Sodium 5,000 Units/ML Vial SUBCUT SCH ×2 (05:03→14:31)
[2019-02-26] MEDS: Albuterol/Ipratropium 3.0-0.5 MG/3 ML Neb Soln NEB SCH ×2 (05:03→11:07)
[2019-02-26 06:26] LABS: CARBON DIOXIDE,CO2 29.1 mmol/L (21.0-32.0); POTASSIUM,K 4.9 mmol/L (3.5-5.1)
--- NOTE | 2019-02-26 08:02 | PCM.PN ---
- General Info Date of Service: 02/26/19 - Patient Data Vitals - Most Recent: Last Vital Signs Temp 97.7 F 02/26/19 07:11 Pulse 86 02/26/19 07:11 Resp 24 H 02/26/19 07:11 BP 123/72 02/26/19 07:11 Pulse Ox 92 L 02/26/19 07:11 Weight - Most Recent: 104.4 kg I&O - Last 24 Hours: Intake & Output 02/25/19 02/26/19 02/26/19 22:59 06:59 14:59 Intake Total 930 320 Output Total 700 800 Balance 230 -480 Lab Results Last 24 Hours: Laboratory Results - last 24 hr 02/26/19 02/26/19 Range/Units 05:30 05:30 WBC 10.54 (4.0-11.0) K/uL RBC 5.19 (4.30-5.90) M/uL Hgb 15.7 (12.0-16.0) g/dL Hct 50.5 H (36.0-46.0) % MCV 97.3 (80.0-98.0) fL MCH 30.3 (27.0-32.0) pg MCHC 31.1 (31.0-37.0) g/dL RDW Std Deviation 59.2 (28.0-62.0) fl RDW Coeff of Viky 17 H (11.0-15.0) % Plt Count 284 (150-400) K/uL MPV 10.30 (7.40-12.00) fL Neut % (Auto) 90.1 H (48.0-80.0) % Lymph % (Auto) 7.0 L (16.0-40.0) % [place] % (Auto) 2.8 (0.0-15.0) % Eos % (Auto) 0.0 (0.0-7.0) % Baso % (Auto) 0.1 (0.0-1.5) % Neut # (Auto) 9.5 H (1.4-5.7) K/uL Lymph # (Auto) 0.7 (0.6-2.4) K/uL [place] # (Auto) 0.3 (0.0-0.8) K/uL Eos # (Auto) 0.0 (0.0-0.7) K/uL Baso # (Auto) 0.0 (0.0-0.1) K/uL Nucleated RBC % 0.0 /100WBC Nucleated RBCs # 0 K/uL Sodium 146 H (136-145) mmol/L Potassium 4.9 (3.5-5.1) mmol/L Chloride 107 (98-107) mmol/L Carbon Dioxide 29.1 (21.0-32.0) mmol/L BUN 37 H (7.0-18.0) mg/dL Creatinine 1.1 H (0.6-1.0) mg/dL Est Cr Clr Drug Dosing 47.72 mL/min Estimated GFR (MDRD) 50.3 ml/min Glucose 169 H (74-106) mg/dL Calcium 9.1 (8.5-10.1) mg/dL Med Orders - Current: Current Medications Albuterol/Ipratropium (Duoneb 3.0-0.5 Mg/3 Ml) 3 ml NEB Q6HRRT [facility] Last Admin: 02/26/19 05:03 Dose: 3 ml Heparin Sodium (Porcine) (Heparin Sodium) 5,000 units SUBCUT Q8H [facility] Last Admin: 02/26/19 05:03 Dose: 5,000 units Levofloxacin (Levaquin) 500 mg PO Q24H [facility] Last Admin: 02/25/19 20:14 Dose: 500 mg Methylprednisolone Sodium Succinate (Solu-Medrol) 125 mg IVPUSH Q12H [facility] Last Admin: 02/25/19 20:14 Dose: 125 mg Nystatin (Nystop) 1 gm TOP BID [facility] Last Admin: 02/25/19 20:38 Dose: 1 applic Sodium Chloride (Saline Flush) 10 ml FLUSH ASDIRECTED PRN PRN Reason: Keep Vein Open Sodium Chloride (Saline Flush) 2.5 ml FLUSH ASDIRECTED PRN PRN Reason: Keep Vein Open Discontinued Medications Albuterol/Ipratropium (Duoneb 3.0-0.5 Mg/3 Ml) 3 ml NEB ONETIME ONE Stop: 02/24/19 11:50 Last Admin: 02/24/19 11:52 Dose: 3 ml Albuterol/Ipratropium (Duoneb 3.0-0.5 Mg/3 Ml) Confirm Administered Dose 3 ml .ROUTE .STK-MED ONE Stop: 02/24/19 11:51 Last Admin: 02/24/19 11:57 Dose: Not Given Albuterol/Ipratropium (Duoneb 3.0-0.5 Mg/3 Ml) 3 ml NEB ONETIME ONE Stop: 02/24/19 12:18 Last Admin: 02/24/19 12:20 Dose: 3 ml Albuterol/Ipratropium (Duoneb 3.0-0.5 Mg/3 Ml) 3 ml NEB Q6HRRT PRN PRN Reason: Shortness of Breath Last Admin: 02/24/19 15:33 Dose: 3 ml Albuterol/Ipratropium (Duoneb 3.0-0.5 Mg/3 Ml) Confirm Administered Dose 3 ml .ROUTE .STK-MED ONE Stop: 02/25/19 09:27 Last Admin: 02/25/19 12:11 Dose: 3 ml Furosemide (Lasix) 20 mg IVPUSH NOW ONE Stop: 02/24/19 13:00 Last Admin: 02/24/19 13:06 Dose: 20 mg Methylprednisolone Sodium Succinate (Solu-Medrol) 125 mg IVPUSH ONETIME ONE Stop: 02/24/19 11:50 Last Admin: 02/24/19 12:11 Dose: 125 mg Nystatin (Nystop) 1 gm TOP BID [facility] - Plan Plan:: 64 yo female who presents with shortness of breath from COPD exacerbation COPD exacerbation: continue supplemental O2, solumedrol, duonebs and levaquin possible CHF: echocardiogram ordered. Patient received Lasix in ED. BUN has increased.
[2019-02-26] MEDS: methylPREDNISolone Sodium Succinate 125 MG/2 ML SDV IVPUSH SCH (08:51)
[2019-02-26] MEDS ORDERED: guaiFENesin 600 MG Tab.ER PO SCH (09:00)
[2019-02-26] MEDS: Nystatin Topical Powder 15 GM Bottle TOP SCH (09:40)
--- NOTE | 2019-02-26 10:51 | PCM.DCSUM1 ---
Discharge Summary - Hospital Course Brief History: 64 yo female with pmh of COPD, oxygen dependent who presents with shortness of breath and wheezing. She denies any fevers, or productive cough. She reports orthopnea and 20 lb weight gain in past three months. She denies and pedal edema. She only takes duonebs at home. CXR reported vascular congestion. She received Solumedrol, duonebs and lasix in the ED. She is feeling a little bit better. Diagnosis: Stroke: No - Discharge Data Discharge Date: 02/26/19 Discharge Disposition: Home, Self-Care 01 Condition: Good - Referral to Home Health Primary Care Physician: PCP Unknown - Discharge Diagnosis/Problem(s) (1) COPD exacerbation SNOMED Code(s): 077082857 ICD Code: J44.1 - CHRONIC OBSTRUCTIVE PULMONARY DISEASE W (ACUTE) EXACERBATION Status: Acute Current Visit: Yes (2) COPD (chronic obstructive pulmonary disease) SNOMED Code(s): 26919253 ICD Code: J44.9 - CHRONIC OBSTRUCTIVE PULMONARY DISEASE, UNSPECIFIED Status : Acute Current Visit: No Qualifiers: COPD type: unspecified COPD Qualified Code(s): J44.9 - Chronic obstructive pulmonary disease, unspecified (3) Oxygen dependent SNOMED Code(s): 125770106326 ICD Code: Z99.81 - DEPENDENCE ON SUPPLEMENTAL OXYGEN Status: Acute Current Visit: Yes (4) Dyspnea SNOMED Code(s): 592096723 ICD Code: R06.00 - DYSPNEA, UNSPECIFIED Status: Acute Current Visit: Yes - Patient Instructions Diet: Regular Diet as Tolerated Activity: As Tolerated Showering/Bathing: May Shower Notify Provider of: Fever, Increased Pain, Swelling and Redness, Drainage, Nausea and/or Vomiting Other/Special Instructions: Home oxygen. Outpatient PFT, pulmonary function testing. - Discharge Plan *PRESCRIPTION DRUG MONITORING PROGRAM REVIEWED*: Not Applicable *COPY OF PRESCRIPTION DRUG MONITORING REPORT IN PATIENT JUAN: Not Applicable Prescriptions/Med Rec: Albuterol [Ventolin HFA] 8 gm IH Q4H PRN #1 inhaler PRN Reason: Shortness Of Breath Albuterol/Ipratropium [DuoNeb 3.0-0.5 MG/3 ML] 3 ml NEB Q4H PRN #1 box PRN Reason: wheezing/shortnessofbreath Fluticasone/Salmeterol [Advair 250-50] 1 puff INH BID #1 diskus levoFLOXacin [Levaquin] 500 mg PO Q24H #4 tablet predniSONE 10 - 40 mg PO .TAPER #30 tab Tiotropium [Spiriva] 18 mcg INH BID 30 Days #1 cartridge Home Medications: Home Meds Albuterol/Ipratropium [DuoNeb 3.0-0.5 MG/3 ML] 3 ml .XX BID #10 neb 10/17/18 [Rx ] Albuterol [Ventolin HFA] 8 gm IH Q4H PRN #1 inhaler 02/26/19 [Rx] Albuterol/Ipratropium [DuoNeb 3.0-0.5 MG/3 ML] 3 ml NEB Q4H PRN #1 box 02/26/19 [Rx] Fluticasone/Salmeterol [Advair 250-50] 1 puff INH BID #1 diskus 02/26/19 [Rx] Nystatin [Nystop] 1 gm TOP BID bottle 02/26/19 [Rx] Tiotropium [Spiriva] 18 mcg INH BID 30 Days #1 cartridge 02/26/19 [Rx] guaiFENesin [Mucinex] 600 mg PO BID tab.er 02/26/19 [Rx] levoFLOXacin [Levaquin] 500 mg PO Q24H #4 tablet 02/26/19 [Rx] predniSONE 10 - 40 mg PO .TAPER #30 tab 02/26/19 [Rx] Oxygen Therapy Mode: Room Air Referrals: [facility] [Outside] - Discharge Summary/Plan Comment DC Time >30 min.: No Discharge Summary/Plan Comment: Admitting Diagnoses: COPD exacerbation Dyspnea Discharge Diagnoses: COPD exacerbation Other PMH: COPD Oxygen dependent, 4 L NC at home Tatiana was admitted for COPD exacerbation. She was treated with Solumedrol, Duonebs and Levaquin. Today she is feeling improved and is asking to go home. She reports she uses her oxygen at home, at times inappropriately and not all the time. She was noted to be hypoxic on RA here, 86% and placed on 4 L NC at sats increased to 92%. She will be prescribed oxygen at home for COPD. She is ambulatory in her home and in public at work and is in need of portable oxygen. She reports she has had PFTs but years ago and denies being on maintenance therapy at home. I will start her on Spiriva and Advair now due to her being severe COPD and oxygen dependent at baseline. She will be on Levaquin PO for 4 more days along with Prednisone taper /04/02 all x 3 days then stopping. She will be arranged to PFT as outpatient and will be set up for follow up here in [place] as well as follow up with PCP, Dr Brower in [place]. Respiratory care performed COPD education with patient prior to discharge. She did complaint of weight gain over the last few months, ECHO performed and pending on discharge. No significant peripheral edema noted. Dyspnea likely secondary to poorly controlled COPD. We did mortgage loan counselor on safe use of oxygen at home. She is to return to ED or clinic if concerns should arise. - General Info Date of Service: 02/26/19 Admission Dx/Problem (Free Text: Admission Diagnosis/Problem Admission Diagnosis/Problem COPD, Moderate chronic obstructive pulmonary disease - Review of Systems General: Reports: No Symptoms HEENT: Reports: No Symptoms Pulmonary: Reports: Cough, Wheezing. Denies: Shortness of Breath Cardiovascular: Reports: No Symptoms. Denies: Chest Pain Gastrointestinal: Reports: No Symptoms. Denies: Abdominal Pain, Nausea, Vomiting Genitourinary: Reports: No Symptoms. Denies: Dysuria, Frequency, Burning Musculoskeletal: Reports: No Symptoms Skin: Reports: No Symptoms Neurological: Reports: No Symptoms Psychiatric: Reports: No Symptoms - Patient Data Vitals - Most Recent: Last Vital Signs Temp 97.7 F 02/26/19 07:11 Pulse 86 02/26/19 07:11 Resp 24 H 02/26/19 07:11 BP 123/72 02/26/19 07:11 Pulse Ox 92 L 02/26/19 07:11 Weight - Most Recent: 104.4 kg I&O - Last 24 hours: Intake & Output 02/25/19 02/26/19 02/26/19 22:59 06:59 14:59 Intake Total 930 320 Output Total 700 800 Balance 230 -480 Lab Results - Last 24 hrs: Laboratory Results - last 24 hr 02/26/19 02/26/19 Range/Units 05:30 05:30 WBC 10.54 (4.0-11.0) K/uL RBC 5.19 (4.30-5.90) M/uL Hgb 15.7 (12.0-16.0) g/dL Hct 50.5 H (36.0-46.0) % MCV 97.3 (80.0-98.0) fL MCH 30.3 (27.0-32.0) pg MCHC 31.1 (31.0-37.0) g/dL RDW Std Deviation 59.2 (28.0-62.0) fl RDW Coeff of Viky 17 H (11.0-15.0) % Plt Count 284 (150-400) K/uL MPV 10.30 (7.40-12.00) fL Neut % (Auto) 90.1 H (48.0-80.0) % Lymph % (Auto) 7.0 L (16.0-40.0) % Turner % (Auto) 2.8 (0.0-15.0) % Eos % (Auto) 0.0 (0.0-7.0) % Baso % (Auto) 0.1 (0.0-1.5) % Neut # (Auto) 9.5 H (1.4-5.7) K/uL Lymph # (Auto) 0.7 (0.6-2.4) K/uL Turner # (Auto) 0.3 (0.0-0.8) K/uL Eos # (Auto) 0.0 (0.0-0.7) K/uL Baso # (Auto) 0.0 (0.0-0.1) K/uL Nucleated RBC % 0.0 /100WBC Nucleated RBCs # 0 K/uL Sodium 146 H (136-145) mmol/L Potassium 4.9 (3.5-5.1) mmol/L Chloride 107 (98-107) mmol/L Carbon Dioxide 29.1 (21.0-32.0) mmol/L BUN 37 H (7.0-18.0) mg/dL Creatinine 1.1 H (0.6-1.0) mg/dL Est Cr Clr Drug Dosing 47.72 mL/min Estimated GFR (MDRD) 50.3 ml/min Glucose 169 H (74-106) mg/dL Calcium 9.1 (8.5-10.1) mg/dL Med Orders - Current: Current Medications Albuterol/Ipratropium (Duoneb 3.0-0.5 Mg/3 Ml) 3 ml NEB Q6HRRT [facility] Last Admin: 02/26/19 05:03 Dose: 3 ml Guaifenesin (Mucinex) 600 mg PO BID [facility] Last Admin: 02/26/19 09:40 Dose: 600 mg Heparin Sodium (Porcine) (Heparin Sodium) 5,000 units SUBCUT Q8H [facility] Last Admin: 02/26/19 05:03 Dose: 5,000 units Levofloxacin (Levaquin) 500 mg PO Q24H [facility] Last Admin: 02/25/19 20:14 Dose: 500 mg Methylprednisolone Sodium Succinate (Solu-Medrol) 125 mg IVPUSH Q12H [facility] Last Admin: 02/26/19 08:51 Dose: 125 mg Nystatin (Nystop) 1 gm TOP BID [facility] Last Admin: 02/26/19 09:40 Dose: 1 applic Sodium Chloride (Saline Flush) 10 ml FLUSH ASDIRECTED PRN PRN Reason: Keep Vein Open Sodium Chloride (Saline Flush) 2.5 ml FLUSH ASDIRECTED PRN PRN Reason: Keep Vein Open Discontinued Medications Albuterol/Ipratropium (Duoneb 3.0-0.5 Mg/3 Ml) 3 ml NEB ONETIME ONE Stop: 02/24/19 11:50 Last Admin: 02/24/19 11:52 Dose: 3 ml Albuterol/Ipratropium (Duoneb 3.0-0.5 Mg/3 Ml) Confirm Administered Dose 3 ml .ROUTE .STK-MED ONE Stop: 02/24/19 11:51 Last Admin: 02/24/19 11:57 Dose: Not Given Albuterol/Ipratropium (Duoneb 3.0-0.5 Mg/3 Ml) 3 ml NEB ONETIME ONE Stop: 02/24/19 12:18 Last Admin: 02/24/19 12:20 Dose: 3 ml Albuterol/Ipratropium (Duoneb 3.0-0.5 Mg/3 Ml) 3 ml NEB Q6HRRT PRN PRN Reason: Shortness of Breath Last Admin: 02/24/19 15:33 Dose: 3 ml Albuterol/Ipratropium (Duoneb 3.0-0.5 Mg/3 Ml) Confirm Administered Dose 3 ml .ROUTE .STK-MED ONE Stop: 02/25/19 09:27 Last Admin: 02/25/19 12:11 Dose: 3 ml Furosemide (Lasix) 20 mg IVPUSH NOW ONE Stop: 02/24/19 13:00 Last Admin: 02/24/19 13:06 Dose: 20 mg Methylprednisolone Sodium Succinate (Solu-Medrol) 125 mg IVPUSH ONETIME ONE Stop: 02/24/19 11:50 Last Admin: 02/24/19 12:11 Dose: 125 mg Nystatin (Nystop) 1 gm TOP BID [facility] - Exam General: Reports: Alert, Oriented, Cooperative, No Acute Distress Lungs: Reports: Normal Respiratory Effort, Decreased Breath Sounds, Wheezing Cardiovascular: Reports: Regular Rate, Regular Rhythm GI/Abdominal Exam: Normal Bowel Sounds, Soft, Non-Tender Back Exam: Reports: Normal Inspection, Full Range of Motion Extremities: Normal Inspection, Normal Range of Motion, Non-Tender, No Pedal Edema, Normal Capillary Refill Neurological: Reports: No New Focal Deficit Psy/Mental Status: Reports: Alert, Normal Affect, Normal Mood
== END 2019-02-26 15:30 | disposition home or self-care (01) ==
LOC: MW.ED 11:41 → MW.MS 13:46
PROVIDERS: ADMIT Internal Medicine; ATTEND Internal Medicine
DX: J44.1 Chronic obstructive pulmonary disease with (acute) exacerbation (principal); F17.210 Nicotine dependence, cigarettes, uncomplicated; Z99.81 Dependence on supplemental oxygen; Z91.040 Latex allergy status
CPT/HCPCS: 36415; 71045; 80048; 80053; 83880; 85025; 93306; 94640; 96374; 96375; 99285; A9270; J1644; J1940; J2930; 96372; 96376; 99283; G0378; J7620-GY